=== PATIENT | female | born 1960 ===

== ENCOUNTER 2018-03-11 13:41 | Emergency (ER) | payer OTHER ==
[2018-03-11] MEDS ORDERED: Sodium Chloride 0.9% 1,000 ML IV ONE (14:04)
[2018-03-11 14:38] LABS: BASO % 0.4 % (0.0-2.0); EOS % 0.3 % (0.0-4.0); HEMOGLOBIN 14.8 g/dL (11.0-16.0); LYMPH % 12.5 % (20.0-40.0); MEAN CELL VOLUME 88.9 fL (81.0-99.0); MEAN CORPUSCULAR HEMOGLOBIN 30.2 pg (27.0-31.0); MEAN CORPUSCULAR HGB CONC 33.9 g/dL (33.0-37.0); MEAN PLATELET VOLUME 8.8 fL (7.2-11.7); MONO # 0.3 K/uL (0.0-0.8); MONO % 4.1 % (0.0-10.0); NEUT # 6.9 K/uL (1.8-7.0); NEUT % 82.7 % (50.0-75.0); NRBC % 0.3 % (0.0-2.0); RBC 4.91 Mil/uL (3.80-5.20); RED CELL DISTRIBUTION WIDTH 13.1 % (11.5-14.5); WHITE BLOOD COUNT 8.3 K/uL (4.8-10.8)
[2018-03-11 14:51] LABS: ALB/GLOB RATIO 1.3 (1.0-2.1); ALT/SGPT 32 U/L (9-52); AST/SGOT 24 U/L (14-36); BLOOD UREA NITROGEN 14 mg/dL (7-17); CALCIUM 10.4 mg/dl (8.6-10.4); GFR NON-AFRICAN AMERICAN > 60; LIPASE 195 U/L (23-300)
[2018-03-11 14:53] LABS: SQUAMOUS EPITHIAL 1 /hpf (0-5); URINE BILIRUBIN NEGATIVE (NEGATIVE); URINE BLOOD NEGATIVE (NEGATIVE); URINE CLARITY Clear (Clear); URINE COLOR Yellow (YELLOW); URINE GLUCOSE (UA) NORMAL (Normal); URINE LEUKOCYTE ESTERASE NEG Leu/uL (Negative); URINE PROTEIN NEGATIVE (NEGATIVE); URINE UROBILINOGEN NORMAL mg/dL (0.2-1.0)
--- NOTE | 2018-03-11 15:11 | C.PDOC ---
History Of Present Illness 57 year old female presents to the ED for evaluation of nausea, vomiting, and diarrhea since this morning. Patient reports eating Cheerios and a homemade meatball for dinner which she believes resulted in her current symptoms, no ot her household member expresses similar symptoms. She notes eating a soup today which she vomited. Denies fever, chills, and any other associated symptoms. Time Seen by Provider: 03/11/18 13:58 Chief Complaint (Nursing): Abdominal Pain History Per: Patient History/Exam Limitations: no limitations Onset/Duration Of Symptoms: Hrs Current Symptoms Are (Timing): Still Present Past Medical History Reviewed: Historical Data, Nursing Documentation, Vital Signs Vital Signs: Last Vital Signs Temp 98.6 F 03/11/18 13:47 Pulse 114 H 03/11/18 13:47 Resp 18 03/11/18 13:47 BP 146/80 03/11/18 13:47 Pulse Ox 98 03/11/18 13:47 - Medical History PMH: Diabetes, Hepatitis (C), HTN Surgical History: Cholecystectomy Family History: States: Unknown Family Hx - Social History Hx Tobacco Use: No Hx Alcohol Use: No Hx Substance Use: No - Immunization History Hx Tetanus Toxoid Vaccination: No Hx Influenza Vaccination: No Hx Pneumococcal Vaccination: No Review Of Systems Except As Marked, All Systems Reviewed And Found Negative. Constitutional: Negative for: Fever, Chills Gastrointestinal: Positive for: Nausea, Vomiting, Diarrhea Physical Exam - Physical Exam Appears: Well, Non-toxic, No Acute Distress Skin: Normal Color, Warm, Dry Head: Atraumatic, Normacephalic Eye(s): bilateral: Normal Inspection Oral Mucosa: Dry Neck: Normal ROM, Supple Chest: Symmetrical, No Deformity Cardiovascular: Rhythm Regular, No Murmur Respiratory: Normal Breath Sounds, No Rales, No Rhonchi, No Wheezing Gastrointestinal/Abdominal: Normal Exam, Bowel Sounds, Soft, No Tenderness Neurological/Psych: Oriented x3, Normal Speech ED Course And Treatment - Laboratory Results Result Diagrams: 03/11/18 14:32 03/11/18 14:32 Lab Interpretation: Abnormal (glu 153, h/o DM) O2 Sat by Pulse Oximetry: 98 (RA) Pulse Ox Interpretation: Normal - Radiology CXR: Interpreted by Me CXR Interpretation: Yes: No Acute Disease - Other Rad abd x 2 X-Ray: Interpreted by Me (scant stool in colon. c/w diarrhea), Viewed By Me, Read By Radiologist Interpretation: IMPRESSION: No acute findings identified. See above. Medical Decision Making Medical Decision Making: acute n/v/d ? food or viral normal labs no sig dehydration oral therapies appropriate @ home. Plan: -Blood sent. Urinalysis. Zofran Toradol Protonix -Obstructive Series. Progress/Update: Patient stable for discharge home. Prescribed Zofran. Disposition Doctor Will See Patient In The: Office Counseled Patient/Family Regarding: Studies Performed, Diagnosis - Disposition Referrals: Jorge Wang MD [Staff Provider] - Disposition: HOME/ ROUTINE Disposition Time: 15:12 Condition: GOOD Additional Instructions: sigue tomando muchos liquidos dieta blanda x 3 rowe Maalox 30 cc (roni cucharada) cada 3 horas jacquelin necessario Zofran ODT (para la nausea/vomitos) jacquelin necessario cada 8 horas. Prescriptions: Ondansetron ODT [Zofran ODT] 4 mg PO Q6H PRN #6 odt PRN Reason: Nausea/Vomiting Instructions: Diarrhea in Adolescents and Adults, Nausea and Vomiting, Adult (DC) Forms: [employer] (Polish) Print Language: SOUTH SUDANESE - Clinical Impression Clinical Impression: Vomiting, Diarrhea - Scribe Statement The provider has reviewed the documentation as recorded by the Scribe (Lizette Romano) Provider Attestation: All medical record entries made by the Scribe were at my direction and persona lly dictated by me. I have reviewed the chart and agree that the record accurately reflects my personal performance of the history, physical exam, medical decision making, and the department course for this patient. I have also personally directed, reviewed, and agree with the discharge instructions and disposition.
[2018-03-11 15:44] VITALS: BP 140/78; PULSE 90; RESP 17; TEMP 98.7
--- NOTE | 2018-03-11 16:05 | RAD ---
Date of service: 03/11/2018 PROCEDURE: Radiographs of the chest and abdomen (obstructive series) HISTORY: abd pain COMPARISON: Obstructive series performed 01/24/15 TECHNIQUE: AP radiograph of the chest, with upright and supine radiographs of the abdomen. FINDINGS: CHEST: Heart size appears within normal limits. Atherosclerotic calcification of the aorta present. No focal consolidation, significant pleural effusion, or definite pneumothorax. Please note that chest x-ray has limited sensitivity for the detection of pulmonary masses. ABDOMEN AND PELVIS: Nonobstructive bowel gas pattern. No definite free air. No acute osseous abnormality is detected. IMPRESSION: No acute findings identified. See above.
[2018-03-11 17:44] VITALS: O2SAT 98
== END 2018-03-11 15:44 | disposition home or self-care (01) ==
LOC: C.ER 13:41
DX: R11.10 Vomiting, unspecified (principal); R19.7 Diarrhea, unspecified
CPT/HCPCS: 74022; 80053; 81001; 83036; 83690; 85025; 96361; 96374; 96375; 99284; C9113; J1885; J2405; J7030